=== PATIENT | male | born 1975 | race Asian ===

== ENCOUNTER 2018-01-15 06:43 | Day surgery (SDC) | payer OTHER ==
[~2018-01-15] VITALS: Ht 180.3 cm; Wt 83.3 kg
[2018-01-15] MEDS ORDERED: BUPIVACAINE/PF-EPI 0.5% 1:200K ONE (06:47)
[2018-01-15 07:39] VITALS: BP 114/73
[2018-01-15] MEDS ORDERED: MIDAZOLAM 1 MG/ML, 2ML ONE (07:51)
[2018-01-15] MEDS ORDERED: FENTANYL PF 250 MCG/5ML ONE (07:51)
[2018-01-15] MEDS ORDERED: PROPOFOL 10 MG/ML, 20ML ONE (07:52)
[2018-01-15] MEDS ORDERED: LIDOCAINE-MPF 2% ,5ML ONE (07:52)
[2018-01-15] MEDS ORDERED: CEFAZOLIN 1,000 MG ONE ×2 (07:53→07:54)
[2018-01-15] MEDS ORDERED: ROCURONIUM 10MG/ML,5ML ONE (07:53)
[2018-01-15] MEDS ORDERED: SCOPOLAMINE PATCH, 1.5MG PATCH.TD72 TD STA (07:58)
[2018-01-15] MEDS ORDERED: ACETAMINOPHEN 500 MG TABLET PO STA (07:58)
[2018-01-15] MEDS ORDERED: GABAPENTIN 300 MG CAPSULE PO STA (07:58)
[2018-01-15] MEDS ORDERED: LACTATED RINGERS 1,000 ML IV SCH ×2 (08:01→10:00)
[2018-01-15] MEDS ORDERED: NO MEDICATIONS (08:06)
[2018-01-15] MEDS ORDERED: NEOSTIGMINE 1 MG/ML, 10ML ONE (08:29)
[2018-01-15] MEDS ORDERED: GLYCOPYRROLATE 0.2MG/1ML, 5ML ONE (08:29)
[2018-01-15] MEDS ORDERED: DEXAMETHASONE 4 MG/ML, 1ML ONE ×2 (08:41)
[2018-01-15] MEDS ORDERED: ONDANSETRON 2MG/ML, 2ML ONE ×2 (08:56)
[2018-01-15] MEDS ORDERED: KETOROLAC 30 MG/1 ML ONE (08:56)
[2018-01-15] MEDS ORDERED: HALOPERIDOL 5 MG/ML IV PRN (09:00)
[2018-01-15] MEDS ORDERED: LABETALOL 5MG/ML, 20ML IV PRN (09:00)
[2018-01-15] MEDS ORDERED: OXYcodone 5 MG/5 ML ORAL.SOL UDC PO PRN (09:00)
[2018-01-15] MEDS ORDERED: FENTANYL PF 100 MCG/2ML IV PRN (09:00)
[2018-01-15] MEDS ORDERED: HYDROmorphone 1 MG/ML, 1ML IV PRN (09:00)
[2018-01-15] MEDS ORDERED: PROMETHAZINE 25 MG/ML, 1ML IV PRN (09:00)
[2018-01-15] MEDS ORDERED: hydrALAzine 20 MG/ML, 1ML IV PRN (09:00)
[2018-01-15] MEDS ORDERED: MEPERIDINE/PF 25MG/0.5ML IVPush PRN (09:00)
[2018-01-15] MEDS ORDERED: MORPHINE SULFATE 4 MG/ML, 1ML IVPush PRN (09:30)
[2018-01-15] MEDS ORDERED: HYDROcodone/APAP 5/325 TABLET PO PRN (09:30)
[2018-01-15] MEDS ORDERED: ONDANSETRON 2MG/ML, 2ML IVPush PRN (09:30)
== END 2018-01-15 12:15 | disposition home or self-care (01) ==
LOC: OUT 06:43
PROVIDERS: ATTEND Thoracic Surgery (Cardiothoracic Vascular Surgery)
DX: K40.20 Bilateral inguinal hernia, without obstruction or gangrene, not specified as recurrent (principal)
CPT/HCPCS: 49650; C1727; C1781; J0690; J1100; J1885; J2250; J2405; J2704; J2710; J3010; J3490